=== PATIENT | female | born 1980 ===

== ENCOUNTER 2019-03-02 11:15 | Outpatient (CLI) | payer OTHER | END 2019-03-02 16:55 | disposition home or self-care (01) | LOC: SONOGRAMA 11:15 | DX: N23 Unspecified renal colic (principal) ==

== ENCOUNTER → 2019-03-02 12:53 | Outpatient (CLI) | payer OTHER | END | disposition home or self-care (01) | LOC: LAB 12:53 | DX: D64.89 Other specified anemias (principal); R31.29 Other microscopic hematuria; N39.0 Urinary tract infection, site not specified ==